=== PATIENT | male | born 1945 | race American Indian/Alaskan Native ===

== ENCOUNTER 2017-08-18 10:04 | Emergency (ER) | payer MEDICARE ==
[2017-08-18 12:22] LABS: Basophils # (Auto) 0.1 K/mm3 (0.0-0.1); Basophils % (Auto) 0.7 % (0.0-1.8); Eosinophils # (Auto) 0.5 K/mm3 (0.0-0.4); Eosinophils % (Auto) 6.6 % (0.0-4.3); Hematocrit 41.8 % (35.5-45.6); Hemoglobin 14.1 gm/dl (11.8-15.2); Lymphocytes % (Auto) 28.6 % (13.4-35.0); Mean Corpuscular HGB Conc 34 % (32-34); Mean Corpuscular Hemoglobin 29 pg (28-32); Mean Corpuscular Volume 87 fl (84-94); Monocytes # (Auto) 0.4 K/mm3 (0.0-0.8); Monocytes % (Auto) 5.8 % (0.0-7.3); Platelet Count 167 K/mm3 (140-440); Red Blood Count 4.83 M/mm3 (3.65-5.03); Red Cell Distribution Width 13.6 % (13.2-15.2)
[2017-08-18 12:32] LABS: INR 0.85 (0.87-1.13)
[2017-08-18 12:33] LABS: Partial Thromboplastin Time 33.6 Sec. (24.2-36.6)
--- NOTE | 2017-08-18 12:39 | Cat Scan Report ---
CT HEAD WITHOUT CONTRAST: HISTORY: Headache, stroke. TECHNIQUE: Sequential CT images without contrast. FINDINGS: Images obtained show bilateral prominence of the sulci and ventricles. There are no abnormal intra- or extra-axial blood or fluid collections. There are no focal masses or evidence of mass effect. The flowers white matter differentiation appears within normal limits. Regions of periventricular decreased attenuation are consistent with microangiopathic ischemic disease. The posterior fossa structures including the fourth ventricle, cerebellum, and brainstem appear normal. IMPRESSION: Evidence of mild atrophy and mild microangiopathic ischemic disease. No acute intracranial process noted. No change since 06/28/15.
[2017-08-18 12:41] LABS: Creatine Kinase MB 4.6 ng/mL (0.0-4.0)
[2017-08-18 16:57] LABS: BUN/Creatinine Ratio 21; Blood Urea Nitrogen 17 mg/dL (9-20); Calcium 8.5 mg/dL (8.4-10.2); Hemolysis Index 10
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
[2017-08-18 19:20] VITALS: BP 117/76
== END 2017-08-18 19:19 | disposition home or self-care (01) ==
LOC: ED 10:04
DX: M62.81 Muscle weakness (generalized) (principal); I10 Essential (primary) hypertension; F17.200 Nicotine dependence, unspecified, uncomplicated
CPT/HCPCS: 36415; 70460; 80048; 82550; 82553; 84484; 85025; 85610; 85670; 85730; 93005; 93010

== ENCOUNTER 2018-05-27 07:58 | Emergency (ER) | payer MEDICARE ==
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
== END 2018-05-27 08:44 | disposition home or self-care (01) ==
LOC: ED 07:58
CPT/HCPCS: 99282

== ENCOUNTER 2018-08-18 23:37 | Emergency (ER) | payer MEDICARE ==
[2018-08-19] MEDS ORDERED: ASPIRIN PO ONE (00:03)
[2018-08-19 00:26] LABS: Basophils # (Auto) 0.1 K/mm3 (0.0-0.1); Eosinophils # (Auto) 0.1 K/mm3 (0.0-0.4); Eosinophils % (Auto) 1.4 % (0.0-4.3); Hematocrit 41.9 % (35.5-45.6); Hemoglobin 14.3 gm/dl (11.8-15.2); Lymphocytes # (Auto) 1.9 K/mm3 (1.2-5.4); Lymphocytes % (Auto) 22.6 % (13.4-35.0); Mean Corpuscular HGB Conc 34 % (32-34); Mean Corpuscular Volume 87 fl (84-94); Monocytes # (Auto) 0.4 K/mm3 (0.0-0.8); Monocytes % (Auto) 5.1 % (0.0-7.3); Platelet Count 199 K/mm3 (140-440); Red Blood Count 4.81 M/mm3 (3.65-5.03)
[2018-08-19 00:47] LABS: BUN/Creatinine Ratio 12; Blood Urea Nitrogen 15 mg/dL (9-20); Calcium 9.6 mg/dL (8.4-10.2); Hemolysis Index 4
--- NOTE | 2018-08-19 00:50 | XRay Report ---
PROCEDURE: XR CHEST ROUTINE 2V TECHNIQUE: PA and lateral views the chest were obtained. HISTORY: Chest Pain COMPARISONS: None FINDINGS: The heart size is normal. There is bilateral interstitial prominence with thickening of the fissures. There are no localized infiltrates or effusions. The skeletal structures reveal disc degeneration in the dorsal spine. IMPRESSION: Interstitial prominence with thickening of the fissures suspicious for mild congestive heart failure. . This document is electronically signed by Tera Benitez MD., August 19 2018 12:48:44 AM ET
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
[2018-08-19 02:33] LABS: INR 0.99 (0.87-1.13)
[2018-08-19 04:31] VITALS: BP 108/65
== END 2018-08-19 03:35 | disposition left against medical advice (07) ==
LOC: ED 23:37
DX: R07.89 Other chest pain (principal); I10 Essential (primary) hypertension; M19.90 Unspecified osteoarthritis, unspecified site; E78.00 Pure hypercholesterolemia, unspecified; F17.200 Nicotine dependence, unspecified, uncomplicated; Z90.49 Acquired absence of other specified parts of digestive tract
CPT/HCPCS: 36415; 71046; 80048; 83880; 84484; 85025; 85379; 85610; 93005; 93010; 99284

== ENCOUNTER 2018-09-21 06:37 | Emergency (ER) | payer MEDICARE ==
[2018-09-21 06:48] VITALS: BP 114/74
[2018-09-21 07:40] LABS: Bacteria,Urine 2+ /HPF (Negative); Bilirubin,Urine NEG (Negative); Blood,Urine MOD (Negative); Color,Urine Red (Yellow); Mucus,Urine FEW /HPF; Urobilinogen,Urine < 2.0 mg/dL (<2.0)
[2018-09-21 07:43] LABS: RBC,Urine > 182.0 /HPF (0.0-6.0)
[2018-09-21] MEDS ORDERED: LEVAQUIN PO ONE (09:07)
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
== END 2018-09-21 09:24 | disposition home or self-care (01) ==
LOC: ED 06:37
DX: N30.01 Acute cystitis with hematuria (principal); I10 Essential (primary) hypertension; M19.90 Unspecified osteoarthritis, unspecified site; E78.00 Pure hypercholesterolemia, unspecified; F17.200 Nicotine dependence, unspecified, uncomplicated; Z90.49 Acquired absence of other specified parts of digestive tract
CPT/HCPCS: 81001; 99283

== ENCOUNTER 2021-06-07 12:06 | Observation (INO) | payer MEDICARE ==
[2021-06-07] MEDS ORDERED: IPRATROPIUM/ALBUTEROL SULFATE 3 ML AMPUL.NEB IH ONE (12:39)
[2021-06-07] MEDS ORDERED: SODIUM CHLORIDE 0.9% 500 ML 500 ML IV ONE (12:39)
[2021-06-07] MEDS ORDERED: ASPIRIN 81 MG TAB CHEW PO ONE (12:42)
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
--- NOTE | 2021-06-07 13:03 | XRay Report ---
CHEST 1 VIEW INDICATION: cp. COMPARISON: 11/28/2019 FINDINGS: Support devices: None. Heart: Normal. Lungs/Pleura: Mild reticular opacities are noted in the mid to lower lungs. No consolidation or effus ion. IMPRESSION: 1. Increased reticular/interstitial markings within the lung bases may be due to scarring. COPD moreno es are noted. Signer Name: Balbir Quinones MD Signed: 06/07/2021 12:59 PM Workstation Name: [id number]
[2021-06-07 13:31] LABS: Basophils # (Auto) 0.2 K/mm3 (0.0-0.1); Basophils % (Auto) 2.8 % (0.0-1.8); Eosinophils # (Auto) 0.4 K/mm3 (0.0-0.4); Eosinophils % (Auto) 6.2 % (0.0-4.3); Hematocrit 49.5 % (35.5-45.6); Hemoglobin 16.1 gm/dl (11.8-15.2); Lymphocytes % (Auto) 17.6 % (13.4-35.0); Mean Corpuscular HGB Conc 33 % (32-34); Mean Corpuscular Volume 86 fl (84-94); Monocytes # (Auto) 0.4 K/mm3 (0.0-0.8); Monocytes % (Auto) 7.4 % (0.0-7.3); Platelet Count 189 K/mm3 (140-440); Red Blood Count 5.74 M/mm3 (3.65-5.03)
[2021-06-07 13:41] LABS: INR 0.88 (0.87-1.13)
[2021-06-07 13:42] LABS: Partial Thromboplastin Time 30.4 Sec. (24.2-36.6)
[2021-06-07 14:17] LABS: Alanine Aminotransferase 16 units/L (7-56); Albumin 3.5 g/dL (3.9-5); BUN/Creatinine Ratio 9; Blood Urea Nitrogen 9 mg/dL (9-20); Calcium 8.9 mg/dL (8.4-10.2); Hemolysis Index 10
[2021-06-07] MEDS ORDERED: POTASSIUM CHLORIDE ER 20 MEQ TAB PO ONE (14:23)
[2021-06-07 14:25] LABS: Bilirubin,Direct < 0.2 mg/dL (0-0.2)
[2021-06-07] MEDS ORDERED: dexAMETHasone 4 MG/ML VIAL IV ONE (14:28)
--- NOTE | 2021-06-07 15:40 | Cat Scan Report ---
CTA CHEST WITH IV CONTRAST INDICATION: HTN + L arm pain, assess for dissection vs. PE OMNI 350 100 ML. TECHNIQUE: Axial CT images were obtained through the chest after injection of 100 cc Omni 350 IV contrast. 3 geni ne MIP reconstructions were produced. All CT scans at this location are performed using CT dose reduc tion for ALARA by means of automated exposure control. COMPARISON: CT chest 10/27/2019 FINDINGS: PULMONARY ARTERIES: No pulmonary emboli. THORACIC AORTA: No acute abnormality. HEART: Normal. CORONARY ARTERIES: No significant calcification. PLEURA: No pleural effusion. No pneumothorax. LYMPH NODES: No significant adenopathy. LUNGS: No acute air space or interstitial disease. Moderate confluent pulmonary emphysema. ADDITIONAL FINDINGS: None. UPPER ABDOMEN: No acute findings. Gallbladder surgically absent. SKELETAL STRUCTURES: Thoracic spondylosis IMPRESSION: 1. No CT evidence for pulmonary embolism. 2. Pulmonary emphysema Signer Name: Nik Leal MD Signed: 06/07/2021 3:35 PM Workstation Name: [id number]
--- NOTE | 2021-06-07 15:51 | History and Physical Report ---
History of Present Illness Chief complaint: I have been coughing a lot History of present illness: 76 YO Male with Obesity Hypoventilation Syndrome, HTN, HLD, CVA, OA, COPD presents to ED for evaluation. Patient reports "I have been coughing a lot". Patient states that he has experienced generalized weakness, increased productive cough of clear sputum, increased nebulizer use without relief. Patient was seen and evaluated today by his primary care physician and was instructed [facility] Patient transported to [facility] via private vehicle for further care and evaluation of the aforementioned symptoms. The patient was seen and evaluated in the emergency department. All lab and imaging studies reviewed. Patient found to have COPD with acute exacerbation, accelerated hypertension. Patient treated with nebulizer therapy with mild improvement in symptoms. Patient placed in observation status and admitted to medical floor due to increased risk of worsening symptoms. Patient had fever, chills, chest pain, palpitation, skin rash, recent contact, known exposure to COVID-19. Patient is fully vaccinated against COVID-19. Past History Past Medical History: COPD, hypertension, hyperlipidemia, stroke Past Surgical History: cholecystectomy, Other (Left shoulder surgery) Social history: , lives with family Medications and Allergies Allergies Allergy/AdvReac Type Severity Reaction Status Date / Time No Known Allergies Allergy Verified 05/27/18 08:03 Home Medications Medication Instructions Recorded Confirmed Last Taken Type Phenazopyridine [Pyridium] 100 mg PO TID #9 tab 02/26/15 07/19/15 06/28/15 22:00 Rx Finasteride [Proscar] 5 mg PO QDAY 06/30/15 07/19/15 07/18/15 History 5 mg Ibuprofen [Motrin 800 MG tab] 800 mg PO Q8HR PRN 06/30/15 07/19/15 Unknown History Simethicone [Phazyme] 180 mg PO PC PRN 06/30/15 07/19/15 Unknown History Tamsulosin [Flomax] 0.8 mg PO QDAY 06/30/15 07/19/15 07/18/15 History 0.8mg hydroCHLOROthiazide [HCTZ] 25 mg PO DAILY 06/30/15 07/19/15 07/18/15 History 25 mg Clopidogrel [Plavix] 75 mg PO QDAY #30 tablet 07/01/15 07/19/15 07/18/15 Rx 75 mg Famotidine [Pepcid] 20 mg PO BID #60 tablet 07/01/15 07/19/15 07/18/15 Rx 20 mg amLODIPine 10 mg PO DAILY #30 tab 07/01/15 07/19/15 07/18/15 Rx 10 mg Pravastatin Sodium [Pravastatin] 20 mg PO QHS 07/19/15 07/19/15 07/18/15 History 20 mg Potassium Chloride [K-Dur] 20 meq PO QDAY #10 tablet 08/18/17 Unknown Rx traMADoL [Ultram 50 MG tab] 50 mg PO Q6HR PRN #10 tablet 05/27/18 Unknown Rx levoFLOXacin [Levaquin TAB] 500 mg PO ONCE #7 tablet 09/21/18 Unknown Rx Potassium Chloride [K-Dur] 10 meq PO QDAY 30 Days #30 tablet 11/26/19 Unknown Rx Docusate Sodium [Colace] 100 mg PO BID #14 capsule 11/29/19 Unknown Rx methOCARBAMOL [Robaxin TAB] 500 mg PO Q6H PRN #14 tablet 11/29/19 Unknown Rx traMADoL [Ultram] 50 mg PO Q6HR PRN #12 tablet 11/29/19 Unknown Rx Ipratropium/Albuter (Nf) 2 puff IH QID PRN #1 inh 06/07/21 Unknown Rx [Combivent Inhaler] predniSONE [Deltasone] 40 mg PO QDAY 4 Days #8 tab 06/07/21 Unknown Rx Review of Systems Constitutional: no weight loss, no weight gain, no fever Ears, nose, mouth and throat: no ear pain, no decreased hearing, no nose pain, no nasal discharge Cardiovascular: no chest pain, no orthopnea, no edema, no syncope Respiratory: cough, cough with sputum, no excessive sputum, no hemoptysis Gastrointestinal: no abdominal pain, no vomiting, no diarrhea, no constipation Genitourinary Male: no hematuria, no flank pain, no discharge, no urinary frequency, no nocturia Rectal: no pain, no bleeding Musculoskeletal: no neck stiffness, no neck pain, no arm numbness/tingling, no shooting leg pain Integumentary: no rash, no redness, no sores, no boils Neurological: no head injury, no paralysis, no weakness, no numbness, no syncope, no tremors Psychiatric: no anxiety, no change in sleep habits, no hypersomnia, no change in appetite, no change in libido Endocrine: no cold intolerance, no excessive thirst, no polyuria, no excessive sweating, no flushing Hematologic/Lymphatic: no easy bleeding, no lymphadenopathy Allergic/Immunologic: no urticaria, no allergic rhinitis, no persistent infections Exam - Constitutional Vitals: Temp Pulse Resp BP Pulse Ox 98 F 78 28 H 158/85 97 06/07/21 12:09 06/07/21 14:00 06/07/21 14:00 06/07/21 14:00 06/07/21 14:00 General appearance: Present: mild distress - EENT Eyes: Present: PERRL ENT: hearing intact, clear oral mucosa - Neck Neck: Present: supple, normal ROM - Respiratory Respiratory effort: normal Respiratory: bilateral: diminished - Cardiovascular Heart Sounds: Present: S1 & S2. Absent: rub, click - Extremities Extremities: pulses symmetrical, No edema Peripheral Pulses: within normal limits - Abdominal General gastrointestinal: Present: soft, non-tender, non-distended, normal bowel sounds Male genitourinary: Present: normal - Integumentary Integumentary: Present: clear, warm, dry - Musculoskeletal Musculoskeletal: gait normal, strength equal bilaterally - Psychiatric Psychiatric: appropriate mood/affect, intact judgment & insight - Neurologic Neurologic: CNII-XII intact, moves all extremities HEART Score - HEART Score EKG: Normal Age: > 65 Risk factors: > 3 risk factors or hx of atherosclerotic disease Troponin: Troponin T < 0.010 ng/mL (0.00-0.029) 06/07/21 13:01 Results - Labs CBC & Chem 7: 06/07/21 13:01 06/07/21 13:01 Labs: Abnormal lab results 06/07/21 06/07/21 06/07/21 Range/Units 13:01 13:01 13:01 RBC 5.74 H (3.65-5.03) M/mm3 Hgb 16.1 H (11.8-15.2) gm/dl Hct 49.5 H (35.5-45.6) % Morris % (Auto) 7.4 H (0.0-7.3) % Eos % (Auto) 6.2 H (0.0-4.3) % Baso % (Auto) 2.8 H (0.0-1.8) % Lymph # (Auto) 1.0 L (1.2-5.4) K/mm3 Baso # (Auto) 0.2 H (0.0-0.1) K/mm3 Potassium 3.2 L (3.6-5.0) mmol/L Glucose 110 H (75-100) mg/dL Albumin 3.5 L (3.9-5) g/dL TSH 5.530 H (0.270-4.200) mlU/mL Assessment and Plan - Patient Problems (1) COPD exacerbation Status: Acute Plan to address problem: Supplemental oxygen, pulse oximetry, nebulizer therapy, IV steroid therapy, supportive care, (2) Accelerated hypertension Status: Acute Plan to address problem: Monitor blood pressure every shift, continue medical management. (3) Obesity hypoventilation syndrome Status: Acute Plan to address problem: Balanced diet, increase physical activity discharge, outpatient pulmonary follow-up for sleep study. (4) DVT prophylaxis Status: Acute Plan to address problem: SCD to bilateral lower extremities while in bed, patient is ambulatory (5) Advance care planning Status: Acute Plan to address problem: Disease education conducted, care plan discussed, diagnoses discussed, prognosis discussed, patient is full code. Patient knowledges understanding and agreement with care plan.
[2021-06-07] MEDS ORDERED: ACETAMINOPHEN 325 MG TAB PO PRN (15:55)
[2021-06-07] MEDS ORDERED: ALBUTEROL 2.5 MG/3 ML NEBU IH PRN (15:55)
[2021-06-07] MEDS ORDERED: ONDANSETRON 4 MG/2 ML INJ IV PRN (15:55)
[2021-06-07] MEDS ORDERED: oxyCODONE /ACETAMINOPHEN 5-325MG TAB PO PRN (15:55)
[2021-06-07] MEDS ORDERED: HYDROmorphone 1 MG/1 ML INJ IV PRN (15:55)
[2021-06-07] MEDS ORDERED: SIMETHICONE 180 MG PO PRN (15:57)
[2021-06-07] MEDS ORDERED: SIMETHICONE 80 MG CHEW TAB PO PRN (16:21)
[2021-06-07 16:42] VITALS: BP 142/98
[2021-06-07] MEDS ORDERED: IBUPROFEN 800 MG TAB PO PRN (16:57)
[2021-06-07 17:03] LABS: Bilirubin,Urine NEG (Negative); Blood,Urine MOD (Negative); Color,Urine Straw (Yellow); Mucus,Urine FEW /HPF; Protein,Urine <15 mg/dL mg/dL (Negative); Urobilinogen,Urine < 2.0 mg/dL (<2.0)
[2021-06-07] MEDS ORDERED: PHENAZOPYRIDINE 100 MG TAB PO SCH (20:00)
[2021-06-07] MEDS ORDERED: PRAVASTATIN 20 MG TAB PO SCH (22:00)
[2021-06-07] MEDS ORDERED: FAMOTIDINE 20 MG TAB PO SCH (22:00)
[2021-06-07] MEDS ORDERED: DOCUSATE SODIUM 100 MG CAP PO SCH (22:00)
[2021-06-07] MEDS ORDERED: NON-FORMULARY EACH (Pravastatin Sodium [Pravastatin] 10 MG Tablet) PO SCH (22:00)
[2021-06-08] MEDS ORDERED: CLOPIDOGREL 75 MG TAB PO SCH (10:00)
[2021-06-08] MEDS ORDERED: amLODIPine 10 MG TAB PO SCH (10:00)
[2021-06-08] MEDS ORDERED: FINASTERIDE 5 MG TAB PO SCH (10:00)
[2021-06-08] MEDS ORDERED: POTASSIUM CHLORIDE ER 10 MEQ TAB PO SCH (10:00)
[2021-06-08] MEDS ORDERED: TAMSULOSIN 0.4 MG CAP PO SCH (10:00)
[2021-06-08] MEDS ORDERED: hydroCHLOROthiazide 25 MG TAB PO SCH (10:00)
--- NOTE | 2021-06-08 14:38 | Electrocardiograph Report ---
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
--- NOTE | 2021-06-10 20:53 | Event Note ---
Date: 06/07/21 Patient left AMA prior to completion of diagnostic testing or work-up. Patient knowledges understanding instructions. Patient signed out AMA.
== END 2021-06-07 18:08 | disposition left against medical advice (07) ==
LOC: ED 12:06 → 3A 15:55
PROVIDERS: ADMIT Internal Medicine; ATTEND Internal Medicine
DX: J44.1 Chronic obstructive pulmonary disease with (acute) exacerbation (principal); E66.2 Morbid (severe) obesity with alveolar hypoventilation; I16.0 Hypertensive urgency; I20.8 Other forms of angina pectoris; E78.5 Hyperlipidemia, unspecified; E78.00 Pure hypercholesterolemia, unspecified; E87.6 Hypokalemia; F17.210 Nicotine dependence, cigarettes, uncomplicated; R94.6 Abnormal results of thyroid function studies; R31.9 Hematuria, unspecified; Z68.37 Body mass index [BMI] 37.0-37.9, adult; Z90.49 Acquired absence of other specified parts of digestive tract; Z79.899 Other long term (current) drug therapy; Z98.890 Other specified postprocedural states
CPT/HCPCS: 36415; 71045; 71275; 80048; 80076; 81001; 83735; 83880; 84443; 84484; 85025; 85610; 85730; 93005; 93010; 94644; 96374; 99285; G0378; J1100; Q9967

== ENCOUNTER 2021-06-19 08:31 | Day surgery (SDC) | payer MEDICARE ==
[2021-06-19] MEDS ORDERED: ASPIRIN EC 325 MG TAB PO ONE (09:08)
[2021-06-19 09:46] LABS: Basophils # (Auto) 0.1 K/mm3 (0.0-0.1); Basophils % (Auto) 0.9 % (0.0-1.8); Eosinophils # (Auto) 0.3 K/mm3 (0.0-0.4); Eosinophils % (Auto) 3.3 % (0.0-4.3); Hematocrit 48.1 % (35.5-45.6); Lymphocytes # (Auto) 1.5 K/mm3 (1.2-5.4); Lymphocytes % (Auto) 19.7 % (13.4-35.0); Mean Corpuscular HGB Conc 33 % (32-34); Mean Corpuscular Volume 86 fl (84-94); Monocytes # (Auto) 0.4 K/mm3 (0.0-0.8); Monocytes % (Auto) 5.6 % (0.0-7.3); Platelet Count 166 K/mm3 (140-440); Red Blood Count 5.58 M/mm3 (3.65-5.03); Red Cell Distribution Width 13.9 % (13.2-15.2)
[2021-06-19 09:57] LABS: INR 0.88 (0.87-1.13)
[2021-06-19] MEDS ORDERED: SODIUM CHLORIDE 0.9% 500 ML 500 ML IV SCH (10:00)
[2021-06-19 10:05] LABS: BUN/Creatinine Ratio 15; Blood Urea Nitrogen 16 mg/dL (9-20); Calcium 8.7 mg/dL (8.4-10.2); Hemolysis Index 24
[2021-06-19] MEDS ORDERED: HEPARIN/NS 5000 UNIT/500ML 1,000 ML IR ONE (12:50)
[2021-06-19] MEDS: MIDAZOLAM 2 MG/2 ML INJ ONE ×2 (13:25→13:30)
[2021-06-19] MEDS: LIDOCAINE (2%) 20 MG/1 ML VIAL 20 ML MDV INFILTRATI ONE ×2 (13:25→13:32)
[2021-06-19] MEDS: fentaNYL 100 MCG/2 ML INJ ONE ×2 (13:25→13:30)
[2021-06-19] MEDS: VERAPAMIL 5 MG/2 ML INJ ONE ×2 (13:26→13:33)
[2021-06-19] MEDS: HEPARIN 10,000 UNITS/10 ML VIAL ONE ×2 (13:26→13:33)
[2021-06-19] MEDS: NITROGLYCERIN SYRINGE 3 ML ONE ×2 (13:27→13:33)
--- NOTE | 2021-06-19 14:08 | Cardiac Catherization Report ---
DATE OF SERVICE: 06/19/2021 REASON FOR PROCEDURE: The patient is a 76-year-old man who presented with recurrent atypical chest pain despite negative non-invasive testing. A cardiac catheterization was recommended for more optimal evaluation of his coronary anatomy. PROCEDURES: 1. Left heart catheterization. 2. Selective left and right coronary angiography. 3. Left ventricular angiography. 4. Sedation time start 1330, end 1345. DESCRIPTION OF PROCEDURE: The patient was prepped and draped in a sterile fashion after informed consent. The right radial artery was entered using Seldinger technique followed by placement of a 6-Welsh hydrophilic sheath. Routine radial cocktail was administered via the sheath. Selective left and right coronary angiography was performed using #3.5 left Imani and #4 right Imani. The right Imani was used for left ventricular angiography. The catheters were removed, sheath removed and hemostasis achieved using a TR band. The patient was returned to the postprocedure unit in stable condition. There were no complications. FINDINGS: HEMODYNAMICS: The left ventricular end diastolic pressure was 12. The ascending aortic pressure was 133/66. There was no significant pressure gradient on pullback across the aortic valve. CORONARY ANGIOGRAPHY: There was mild ostial narrowing of the left main coronary artery. This was followed by mild luminal irregularities of the proximal to mid LAD. The mid LAD was notable for an eccentric 40%-50% stenosis. The circumflex artery and its obtuse marginal branches contain minimal irregularities. The right coronary artery contained mild ostial narrowing, but otherwise had no significant disease. Right coronary artery was dominant. Left ventricular systolic function was well preserved, ejection fraction 55%. CONCLUSION: 1. 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 2. Well-preserved left ventricular systolic function, ejection fraction 50%-55%. RECOMMENDATIONS: Aggressive risk factor modification, clinical followup and serial stress testing for nonobstructive mid LAD disease. TID: [id number] RECEIPT: [id number] CA/SAY
--- NOTE | 2021-06-19 14:13 | Electrocardiograph Report ---
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
[2021-06-19] MEDS ORDERED: traMADol 50 MG TAB PO PRN (14:17)
--- NOTE | 2021-06-19 14:20 | Discharge Summary ---
Short Stay Discharge Plan Activity: advance as tolerated Weight Bearing Status: Full Weight Bearing Diet: low fat, low cholesterol, low salt Wound: keep clean and dry Special Instructions: no heavy lifting (3 days) Follow up with: PRIMARY MD JOVAN [Primary Care Provider] - 7 Days FARIHA FLORES MD [Staff Physician] - 7 Days
[2021-06-19] MEDS ORDERED: SODIUM CHLORIDE 0.9% 1000 ML 1,000 ML IV SCH (14:30)
[2021-06-19 16:34] VITALS: BP 129/69
== END 2021-06-19 17:26 | disposition home or self-care (01) ==
LOC: CATHLABREC 08:31
PROVIDERS: ATTEND Internal Medicine Cardiovascular Disease
DX: R07.89 Other chest pain (principal); I25.118 Atherosclerotic heart disease of native coronary artery with other forms of angina pectoris; F17.210 Nicotine dependence, cigarettes, uncomplicated; E78.5 Hyperlipidemia, unspecified; I10 Essential (primary) hypertension; K21.9 Gastro-esophageal reflux disease without esophagitis; E66.2 Morbid (severe) obesity with alveolar hypoventilation; J44.9 Chronic obstructive pulmonary disease, unspecified; M19.90 Unspecified osteoarthritis, unspecified site; Z87.01 Personal history of pneumonia (recurrent); Z90.49 Acquired absence of other specified parts of digestive tract; Z85.46 Personal history of malignant neoplasm of prostate; Z79.899 Other long term (current) drug therapy; Z68.28 Body mass index [BMI] 28.0-28.9, adult; Z79.82 Long term (current) use of aspirin; Z98.890 Other specified postprocedural states; Z86.73 Personal history of transient ischemic attack (TIA), and cerebral infarction without residual deficits
CPT/HCPCS: 36415; 80048; 85025; 85610; 93005; 93010; 93458; 99156; C1769; C1894; J1644; J1815; J2250; J3010; J3490; J7040; Q9967

== ENCOUNTER 2022-01-27 10:12 | Emergency (ER) | payer MEDICARE ==
[2022-01-27 10:24] VITALS: BP 171/97
[2022-01-27] MEDS ORDERED: ASPIRIN 325 MG TAB PO ONE (10:35)
--- NOTE | 2022-01-27 11:01 | Electrocardiograph Report ---
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
[2022-01-27 11:31] LABS: Basophils % (Auto) 0.5 % (0.0-1.8); Eosinophils # (Auto) 0.1 K/mm3 (0.0-0.4); Eosinophils % (Auto) 2.2 % (0.0-4.3); Hematocrit 50.3 % (35.5-45.6); Hemoglobin 17.3 gm/dl (11.8-15.2); Lymphocytes % (Auto) 19.2 % (13.4-35.0); Mean Corpuscular HGB Conc 34 % (32-34); Mean Corpuscular Volume 90 fl (84-94); Monocytes # (Auto) 0.5 K/mm3 (0.0-0.8); Monocytes % (Auto) 9.1 % (0.0-7.3); Platelet Count 164 K/mm3 (140-440); Red Blood Count 5.59 M/mm3 (3.65-5.03)
[2022-01-27 11:59] LABS: Alanine Aminotransferase 12 units/L (7-56); Albumin 3.6 g/dL (3.9-5); BUN/Creatinine Ratio 14; Blood Urea Nitrogen 13 mg/dL (9-20); Calcium 9.4 mg/dL (8.4-10.2); Hemolysis Index 14
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
--- NOTE | 2022-01-27 12:18 | XRay Report ---
CHEST 2 VIEWS INDICATION: chest pain. COMPARISON: 06/07/2021 FINDINGS: SUPPORT DEVICES: None. HEART: Within normal limits. LUNGS/PLEURA: Likely chronic diffuse interstitial prominence with no acute air space disease. No eff usion. ADDITIONAL FINDINGS: None. IMPRESSION: 1. Lung findings as above. Signer Name: Yordan Sheets MD Signed: 01/27/2022 12:14 PM Workstation Name: [id number]
== END 2022-01-27 14:08 | disposition home or self-care (01) ==
LOC: ED 10:12
DX: M25.512 Pain in left shoulder (principal); I10 Essential (primary) hypertension; M19.90 Unspecified osteoarthritis, unspecified site; J44.1 Chronic obstructive pulmonary disease with (acute) exacerbation; Z86.73 Personal history of transient ischemic attack (TIA), and cerebral infarction without residual deficits; Z90.49 Acquired absence of other specified parts of digestive tract; Z79.899 Other long term (current) drug therapy
CPT/HCPCS: 36415; 71046; 80053; 84484; 85025; 93005; 99284